=== PATIENT | female | born 1985 | race Caucasian/White ===

== ENCOUNTER 2022-01-01 16:46 | Emergency (ER) | payer OTHER ==
[2022-01-01 17:35] LABS: Urine Blood Negative (Negative); Urine Glucose Negative (Negative); Urine Protein Negative (Negative); Urine Specific Gravity 1.025 (1.005-1.030)
[2022-01-01 17:39] LABS: Absolute Lymphocytes (CBC) 1.5 K/uL (0.7-4.9); Hematocrit 39.4 % (36.0-45.0); Lymphocytes % 26.2 % (15.3-44.8); MCV 91.8 fL (80-100); RBC Red Blood Cell Count 4.29 M/uL (3.86-4.86)
[2022-01-01 17:52] LABS: Urine Bacteria <20 /HPF (<20); Urine RBC <5 /HPF (None Seen)
[2022-01-01 17:55] LABS: Albumin 4.2 g/dL (3.4-5.0); Bilirubin Total 0.3 mg/dL (0.2-1.0); Potassium 3.8 mmol/L (3.5-5.1); Protein, Total 7.7 g/dL (6.4-8.2)
--- NOTE | 2022-01-01 18:45 | RAD REPORT ---
EXAM DESCRIPTION: US - Transvaginal OB - 01/01/2022 6:32 pm CLINICAL HISTORY: ABD CRAMPING, COMPARISON: No comparisons FINDINGS: Single IUP identified. The crown-rump length measures 5 millimeters which is consistent wi th 6 week 3 day. A yolk sac is identified measuring 2 millimeters. The heart rate was measured at 116 beats/minute. The right ovary measures 3.5 x 2.1 x 2 cm with volume of 7.4 mL. The left ovary measures 2.9 x 2.5 x 2.4 cm with volume of 9.3 mL. Both ovaries demonstrate vascular flow. IMPRESSION: Single IUP identified with positive heart tones measuring 6 week 3 day with LILY of 08/24/2022. Bilateral ovarian blood flow is present.
--- NOTE | 2022-01-01 19:09 | EDPHYS ---
Physician Documentation [facility] Name: Ira Stewart Age: 36 yrs Sex: Female : 1985 Arrival Date: 01/01/2022 Time: 16:49 Bed 15 Private MD: ED Physician Disha Peter HPI: 01/01 17:02 This 36 yrs old Female presents to ER via Ambulatory with complaints of Abdominal Pain, kb Back Pain, Nausea, 7 wks pg. 17:02 The patient presents to the emergency department with abdominal pain, of the right kb lower quadrant and left lower quadrant, nausea and vomiting. The estimated gestational age is 7 weeks. course: care: private OB physician, Leakage of Fluid: none appreciated, Ultrasound: the patient has not had an ultrasound, Risk/complications: no obvious risks or complications are appreciated. Previous pregnancies: in previous pregnancies patient has had. Associated signs and symptoms: Pertinent positives: abdominal pain, vomiting, back pain. The patient has not experienced similar symptoms in the past. The patient has been recently seen by a physician: seen by OB last week. 17:27 Patient reports low back pain that started a week ago, 2 days ago started radiating kb into the abdomen. Reports nausea and vomiting today.. 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 - Social history:: Smoking status: Patient denies any tobacco usage or history of. ROS: 17:27 Constitutional: Negative for fever, chills, and weight loss. kb 17:27 Abdomen/GI: Positive for abdominal pain, nausea and vomiting, Negative for diarrhea, constipation. 17:27 Back: Positive for pain at rest, pain with movement, of the low back area. 17:27 All other systems are negative. Exam: 17:28 Constitutional: This is a well developed, well nourished patient who is awake, alert, kb and in no acute distress. Head/Face: Normocephalic, atraumatic. ENT: Moist Mucous membranes Cardiovascular: Regular rate and rhythm with a normal S1 and S2. No gallops, murmurs, or rubs. No pulse deficits. Respiratory: Respirations even and unlabored. No increased work of breathing. Talking in full sentences Abdomen/GI: Soft, non-tender. No distention Skin: Warm, dry with normal turgor. Normal color. MS/ Extremity: Pulses equal, no cyanosis. Neurovascular intact. Full, normal range of motion. Neuro: Awake and alert, GCS 15, oriented to person, place, time, and situation. Moves all extremities. Normal gait. Psych: Awake, alert, with orientation to person, place and time. Behavior, mood, and affect are within normal limits. Vital Signs: 16:59 BP 114 / 73; Pulse 89; Resp 16; Temp 98.2; Pulse Ox 98% ; Weight 63.5 kg; Height 4 ft. ll1 11 in. (149.86 cm); Pain 8/10; 16:59 Body Mass Index 28.28 (63.50 kg, 149.86 cm) ll1 MDM: 17:02 Patient medically screened. kb 17:28 Data reviewed: vital signs, nurses notes. Data interpreted: Pulse oximetry: on room air kb is 98 %. Interpretation: normal. 17:28 ED course: Tenderness to back or abdomen.. kb 01/01 17:06 Order name: CBC with Diff; Complete Time: 17:55 kb 01/01 17:06 Order name: CMP; Complete Time: 17:56 kb 01/01 17:06 Order name: Lipase; Complete Time: 17:56 kb 01/01 17:06 Order name: Abo/rh Typing; Complete Time: 18:01 kb 01/01 17:06 Order name: Basic Metabolic Panel kb 01/01 17:06 Order name: Urine Microscopic Only; Complete Time: 17:55 kb 01/01 17:06 Order name: IV Saline Lock; Complete Time: 17:28 kb 01/01 17:06 Order name: Labs collected and sent; Complete Time: 17:27 kb 01/01 17:06 Order name: NPO; Complete Time: 17:06 kb 01/01 17:22 Order name: US Transvaginal Ob kb 01/01 17:35 Order name: Urine Dipstick-Ancillary; Complete Time: 17:55 EDMS 01/01 17:38 Order name: Urine --Ancillary (enter results) eb 01/01 18:47 Order name: US; Complete Time: 18:47 EDMS 01/01 19:00 Order name: ABO/RH no charge; Complete Time: 19:02 EDMS 01/01 17:06 Order name: Urine Dipstick-Ancillary (obtain specimen); Complete Time: 17:37 kb 01/01 17:06 Order name: Urine Test (obtain specimen); Complete Time: 17:37 kb 01/01 18:22 [place] [facility] [place]: obtain lavender for ABO RH verification; Complete Time: 18:26 ss Administered Medications: No medications were administered Disposition Summary: 01/01/22 19:09 Discharge Ordered Location: Home kb Condition: Stable kb Diagnosis - Low back pain kb - Less than 8 weeks gestation of kb Followup: kb - With: Emergency Department - When: As needed - Reason: Worsening of condition Followup: kb - With: Private Physician - When: 2 - 3 days - Reason: Recheck today's complaints, Continuance of care, Re-evaluation by your physician Discharge Instructions: - Discharge Summary Sheet kb - Back Pain in kb - First Trimester of , [id number] kb Forms: - Medication Reconciliation Form kb - Thank You Letter kb - Antibiotic Education kb - Prescription Opioid Use kb Signatures: Dispatcher [employer] Regina Danielle, SHER-C SHER-Jovanna Cuevas, RN RN ss Jerome Mullen, RN RN ll1
--- NOTE | 2022-01-01 19:09 | ER ---
Nurse's Notes [facility] Name: Ira Stewart Age: 36 yrs Sex: Female : 1985 Arrival Date: 01/01/2022 Time: 16:49 Bed 15 Private MD: Diagnosis: Low back pain;Less than 8 weeks gestation of Presentation: 01/01 16:59 Chief complaint: Patient states: Low back pain since last week. Past two days pain ll1 radiates into lower abdomen. + N/V for 2 days. 7 weeks G2, P1. Legs feel weak. No fever. Coronavirus screen: Vaccine status: Patient reports being unvaccinated. Client denies travel out of the [place] in the last 14 days. At this time, the client does not indicate any symptoms associated with coronavirus-19. Ebola Screen: Patient denies travel to an Ebola-affected area in the 21 days before illness onset. Initial Sepsis Screen: Does the patient meet any 2 criteria? No. Patient's initial sepsis screen is negative. Does the patient have a suspected source of infection? Yes: Acute abdominal pain. Risk Assessment: Do you want to hurt yourself or someone else? Patient reports no desire to harm self or others. Onset of symptoms was December 22, 2021. 16:59 Method Of Arrival: Ambulatory ll1 16:59 Acuity: ELICIA 3 ll1 Triage Assessment: 17:02 General: Appears uncomfortable, ill, Behavior is cooperative, appropriate for age, ll1 crying. Pain: Complains of pain in low abd Pain currently is 8 out of 10 on a pain scale. Quality of pain is described as crampy. GI: Reports lower abdominal pain, cramping, nausea, vomiting. Musculoskeletal: Reports pain in low back. 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 - Social history:: Smoking status: Patient denies any tobacco usage or history of. Screenin:39 Abuse screen: Denies threats or abuse. Nutritional screening: No deficits noted. jd3 Tuberculosis screening: No symptoms or risk factors identified. Fall Risk IV access (20 points). Ambulatory Aid- None/Bed Rest/Nurse Assist (0 pts). Gait- Normal/Bed Rest/Wheelchair (0 pts) Mental Status- Oriented to own ability (0 pts). Total Magallon Fall Scale indicates No Risk (0-24 pts). Assessment: 17:30 General: Appears in no apparent distress. uncomfortable, Behavior is calm, cooperative, jd3 appropriate for age. Pain: Complains of pain in low back area and mid back area Pain radiates to abdomen Quality of pain is described as radiating, sharp. Neuro: Elena Agitation-Sedation Scale (RASS): 0 - Alert and Calm Level of Consciousness is awake, alert, obeys commands, Oriented to person, place, time, situation. Cardiovascular: Capillary refill < 3 seconds Patient's skin is warm and dry. Respiratory: Airway is patent Respiratory effort is even, unlabored, Respiratory pattern is regular, symmetrical. GI: Abdomen is non-distended, Abd is soft and non tender X 4 quads. Reports lower abdominal pain, upper abdominal pain, nausea. : No signs and/or symptoms were reported regarding the genitourinary system. EENT: No signs and/or symptoms were reported regarding the EENT system. Derm: Skin is intact, Skin is dry, Skin is normal, Skin temperature is warm. Musculoskeletal: Circulation, motion, and sensation intact. Range of motion: intact in all extremities. 18:14 Reassessment: Patient appears in no apparent distress at this time. No changes from jd3 previously documented assessment. Patient and/or family updated on plan of care and expected duration. Pain level reassessed. Patient is alert, oriented x 3, equal unlabored respirations, skin warm/dry/pink. Vital Signs: 16:59 BP 114 / 73; Pulse 89; Resp 16; Temp 98.2; Pulse Ox 98% ; Weight 63.5 kg; Height 4 ft. ll1 11 in. (149.86 cm); Pain 8/10; 16:59 Body Mass Index 28.28 (63.50 kg, 149.86 cm) ll1 ED Course: 16:49 Patient arrived in ED. rg4 16:51 Regina Almendarez F[facility]-C [facility] kb 16:51 Disha Peter MD is Attending Physician. kb 17:02 Triage completed. ll1 17:02 Arm band placed on Patient placed in an exam room, on a stretcher. ll1 17:04 Alonzo Ahmadi, RN is Primary Nurse. jd3 17:37 Inserted saline lock: 20 gauge in left antecubital area, using aseptic technique. hand, jd3 using aseptic technique. Blood collected. 17:39 Patient has correct armband on for positive identification. Bed in low position. Call jd3 light in reach. Side rails up X 1. Adult w/ patient. Pulse ox on. NIBP on. 19:16 No provider procedures requiring assistance completed. IV discontinued, intact, ll3 bleeding controlled, No redness/swelling at site. Pressure dressing applied. Administered Medications: No medications were administered Medication: 17:39 VIS not applicable for this client. jd3 Outcome: 19:09 Discharge ordered by . kb 19:16 Discharged to home ambulatory. ll3 19:16 Condition: stable 19:16 Discharge instructions given to patient, Instructed on discharge instructions, follow up and referral plans. Demonstrated understanding of instructions, follow-up care. 19:17 Patient left the ED. ll3 Signatures: Regina Almendarez, SAWING AND ASSEMBLY SUPERVISOR-C SAWING AND ASSEMBLY SUPERVISOR-Licha Berry rg4 Alonzo Ahmadi, RN RN jd3 Jerome Mullen, RN RN ll1 Reggie Murray RN RN ll3
[2022-01-01 20:01] LABS: Urine Specific Gravity/Preg 1.025 (1.005-1.030)
[2022-01-01 20:58] VITALS: BP 114/73; TEMP 98.2; O2SAT 98
== END 2022-01-01 19:17 | disposition home or self-care (01) ==
LOC: ER 16:46
DX: O26.891 Other specified pregnancy related conditions, first trimester (principal); Z3A.01 Less than 8 weeks gestation of pregnancy
CPT/HCPCS: 36415; 76817; 80053; 81003; 81015; 81025; 83690; 85025; 86900; 86901; 99283